=== PATIENT | female | born 1985 | race Caucasian/White ===

== ENCOUNTER → 2016-09-27 | Outpatient (REF) | payer BC | LOC: M LAB REF 17:57 | PROVIDERS: ATTEND Advanced Practice Midwife | DX: Z01.419 Encounter for gynecological examination (general) (routine) without abnormal findings (principal); Z11.51 Encounter for screening for human papillomavirus (HPV) ==

== ENCOUNTER → 2016-10-04 | Outpatient (CLI) | payer BC ==
--- NOTE | 2016-10-04 12:00 | REP ---
PELVIC ULTRASOUND: Real-time sonographic of the pelvis performed utilizing transabdominal and endovaginal technique. Bladder measures 8.2 x 6.9 x 9.6 cm. Uterus measures 8.9 x 4.1 x 5.8 cm. Endometrial thickness is 11 mm. Questionable posterior fibroid measures 1.6 x 1.9 x 2.6 cm. Ovaries appear normal in size and echotexture, right ovary measuring 3.3 x 2.2 x 2.3 cm and left ovary 2.7 x 1.6 x 2.2 cm. Normal sized follicles are seen in each ovary. There is no torsion bilaterally with duplex Doppler evaluation showing blood flow in each ovary. Tiny amount of free fluid is likely physiologic in nature. IMPRESSION: Endometrial thickness 11 mm. Questionable posterior fibroid 1.6 x 1.9 x 2.6 cm. Signed by Kd Duque MD 10/04/2016 05:20 P
== END ==
LOC: M SMT 09:31
PROVIDERS: ATTEND Advanced Practice Midwife
DX: N92.0 Excessive and frequent menstruation with regular cycle (principal); R93.8 Abnormal findings on diagnostic imaging of other specified body structures

== ENCOUNTER → 2016-12-02 | Outpatient (REF) | payer BC ==
[2016-12-03 14:38] LABS: PERCENT SATURATION 25.6 % (13.2-45.0)
== END ==
LOC: M LAB REF 13:44
PROVIDERS: ATTEND Internal Medicine Nephrology
DX: E61.1 Iron deficiency (principal); D30.02 Benign neoplasm of left kidney

== ENCOUNTER → 2018-10-20 | Outpatient (CLI) | payer BC ==
[2018-10-20 18:25] LABS: BASO % 0.1 % (0.0-1.0); EOS # 0.2 10^3/uL (0.0-0.5); EOS % 3.1 % (0.0-3.0); HEMATOCRIT 35.5 % (36.0-47.0); HEMOGLOBIN 12.1 g/dl (12.0-15.5); LYMPH # 1.3 10^3/uL (1.5-5.0); LYMPH % 17.8 % (24.0-44.0); MEAN CORPUSCULAR HEMOGLOBIN 30.5 pg (27.0-33.0); MEAN CORPUSCULAR HGB CONC 34.1 g/dl (32.0-36.5); MEAN CORPUSCULAR VOLUME 89.4 fl (80.0-96.0); MONO # 0.4 10^3/uL (0.0-0.8); MONO % 5.8 % (0.0-5.0); NEUTROPHILS # 5.3 10^3/uL (1.5-8.5); NEUTROPHILS % 72.9 % (36.0-66.0); PLATELET COUNT, AUTOMATED 190 10^3/uL (150-450); RED BLOOD COUNT 3.97 10^6/uL (4.00-5.40); WHITE BLOOD COUNT 7.2 10^3/uL (4.0-10.0)
[2018-10-20 22:52] LABS: CHLAMYDIA DNA AMPLIFICATION NEGATIVE (NEGATIVE); GC DNA AMPLIFICATION NEGATIVE (NEGATIVE)
[2018-10-21 07:20] LABS: HIV 1&2 SCREEN CENTAUR NEGATIVE (NEGATIVE); RUBELLA IgG QUALITATIVE IMMUNE (IMMUNE)
== END ==
LOC: M SMT 15:21
PROVIDERS: ATTEND Advanced Practice Midwife
DX: Z34.81 Encounter for supervision of other normal pregnancy, first trimester (principal)

== ENCOUNTER → 2018-12-09 | Outpatient (CLI) | payer BC ==
--- NOTE | 2018-12-10 08:34 | REP ---
Obstetric sonography: History: Supervision of : For anatomy. Findings: Scanning through the gravid uterus demonstrates a viable single intrauterine gestation in a breech lie. motion is observed and heart rate is recorded at 141 beats per minute. A posterior grade 0 placenta is seen without evidence of previa or abruption. Amniotic fluid is subjectively normal. Closed cervical length measures 4 cm viewed transabdominally. No extrauterine abnormalities observed. nose and lips appear normal but facial profile could not be optimally displayed due to position. Similarly, four-chamber heart and left ventricular outflow tract views were less than optimally seen. The following additional anatomic structures were identified and felt to be unremarkable: cranium, choroid plexus, cavum, cerebellum and posterior fossa, lungs, right ventricular cardiac outflow tract view, diaphragm, left-sided stomach, abdominal wall cord insertion, three-vessel cord, kidneys and bladder, spine, upper and lower extremities. Biometry chart: BPD 4.6 cm = 19 weeks 6 days Head circumference 17.5 cm = 20 weeks 0 days Abdominal circumference 16.3 cm = 21 weeks 2 days Femur length 3.4 cm = 20 weeks 4 days Humeral length 3.3 cm = 21 weeks 1 day HC/AC ratio normal 1.08. Cephalic index normal 0.71. Estimated weight 383 grams, 0 pounds 13 ounces, 79th percentile for 20 weeks zero days. Impression: Viable single intrauterine gestation at 20 weeks 4 days by today's composite sonographic criteria. JENNIFER by today's sonography April 24, 2019. face and heart visualization less than optimal. Breech lie. Electronically Signed by Gera Howard MD 12/10/2018 08:35 A
== END ==
LOC: M RAD 17:46
PROVIDERS: ATTEND Advanced Practice Midwife
DX: Z34.82 Encounter for supervision of other normal pregnancy, second trimester (principal)

== ENCOUNTER → 2019-01-19 | Outpatient (CLI) | payer BC ==
--- NOTE | 2019-01-19 10:15 | REP ---
OB ULTRASOUND: Real-time sonographic evaluation of the gravid uterus performed. There is a single living intrauterine gestation with an estimated gestational age of 25 weeks 6 days, EDC 04/28/2019. Today's measurements indicate appropriate growth. Biometry and Growth: BPD 65 mm = 26 weeks 1 day, 51st percentile HC 241 mm = 26 weeks 1 day, 56th percentile AC 218 mm = 26 weeks 2 days, 58th percentile FL 47 mm = 25 weeks 4 days, 42nd percentile HC/AC ratio 1.10 within normal range. Estimated weight 880 grams, 46th percentile. SEEN/GROSSLY UNREMARKABLE Lateral ventricles Yes Posterior fossa Yes Upper lip Yes Four-chamber heart Yes. Echogenic focus in the left ventricle likely related to cordae tendinea. LVOT Yes RVOT Yes Stomach Yes Cord insertion Yes Three vessel cord Yes Kidneys Yes Bladder Yes Spine Yes Cervical length: Closed and measures 3.7 cm in length. heart rate: 142 beats per minute. position: Breech. Placenta: Posterior and to the right, grade 0 with no previa or abruption. Amniotic fluid: Within normal limits. Electronically Signed by Kd Duque MD 01/20/2019 10:33 A
[2019-01-19 11:26] LABS: HEMATOCRIT 33.7 % (36.0-47.0); HEMOGLOBIN 11.5 g/dl (12.0-15.5); MEAN CORPUSCULAR HEMOGLOBIN 31.8 pg (27.0-33.0); MEAN CORPUSCULAR HGB CONC 34.1 g/dl (32.0-36.5); MEAN CORPUSCULAR VOLUME 93.1 fl (80.0-96.0); PLATELET COUNT, AUTOMATED 163 10^3/uL (150-450); RED BLOOD COUNT 3.62 10^6/uL (4.00-5.40)
== END ==
LOC: M RAD 08:32
PROVIDERS: ATTEND Advanced Practice Midwife
DX: O09.812 Supervision of pregnancy resulting from assisted reproductive technology, second trimester (principal)

== ENCOUNTER → 2019-03-26 | Outpatient (REF) | payer BC | LOC: M WHC 13:41 | PROVIDERS: ATTEND Advanced Practice Midwife | DX: Z34.03 Encounter for supervision of normal first pregnancy, third trimester (principal) ==

== ENCOUNTER 2019-04-30 16:23 | Inpatient (IN) | payer BC ==
[~2019-04-30] VITALS: Ht 165.1 cm; Wt 63.2 kg
[2019-04-30 17:01] VITALS: BP 129/76
[2019-04-30] MEDS ORDERED: MAPA500T2 PO (17:10)
[2019-04-30] MEDS ORDERED: PRENTAB9 PO (17:10)
--- NOTE | 2019-04-30 17:41 | HPE ---
DATE OF ADMISSION: 04/30/2019 Sadie is a 33-year-old 2, para 0-0-1-0. She is at 40-6/7 weeks gestation with an estimated date of confinement (EDC) of 04/24/2019 based on in vitro fertilization (IVF) transfer. She presents to labor and delivery for induction of labor due to post-term . [facility] in the first trimester. course complicated by advanced maternal age and IVF transfer. OBSTETRICAL HISTORY: October 2015, six weeks spontaneous miscarriage. OBSTETRIC LABORATORY DATA: A+, antibody screen negative. Rubella immune, VDRL nonreactive. Urine culture no growth. Hepatitis B surface antigen negative, HIV negative. Hepatitis C antibody nonreactive. Gonorrhea and Chlamydia negative. She declined genetic serum screening laboratories. Gestational diabetic screening normal at 98 and her GBS is negative. PAST MEDICAL HISTORY: Childhood varicella. PAST SURGICAL HISTORY: Hysteroscopy, tonsillectomy, adenoidectomy, and tympanostomy. FAMILY HISTORY: Diabetes, hypertension, schizophrenia, anxiety, and hyperthyroid. SOCIAL HISTORY: The patient is . She is a nonsmoker. She denies alcohol and drug use. No history of sexually transmitted infections and she denies a history of abuse, physical, sexual and emotional. ALLERGIES: SULFA. CURRENT MEDICATIONS: vitamin. OBJECTIVE: Complete set of vital signs have yet to be taken. Her blood pressure is 129/76. She is alert and oriented times three, smiling and talkative. heart rate is 145 with moderate variability, positive accelerations, negative decelerations. There is no pattern of regular contractions. Her abdomen is gravid, cephalic presentation. Estimated weight 7 pounds. Sterile vaginal examination: 1 cm dilated, 50% effaced, -2 station, posterior, moderate texture. ASSESSMENT: Interim at 40-6/7 weeks. heart rate category 1. PLAN: Admit the patient to labor and delivery. Routine laboratories. Saline lock. Out of bed ad pramod. Regular diet at this time. I plan to start misoprostol 50 mcg by mouth every four hours for cervical ripening. The patient has been counseled regarding risks, benefits and alternatives with induction of labor. She has been verbally consented for emergency surgery and blood products if necessary. All of her and her 's questions have been answered and they do desire to proceed with induction. I do anticipate cervical ripening, labor and a vaginal delivery.
[2019-04-30] MEDS: miSOPROStol 50 MCG 1/2 TAB (S0191) PO SCH ×2 (18:22→22:30)
[2019-04-30 18:27] LABS: HEMOGLOBIN 12.4 g/dl (12.0-15.5); MEAN CORPUSCULAR HEMOGLOBIN 31.5 pg (27.0-33.0); MEAN CORPUSCULAR HGB CONC 34.4 g/dl (32.0-36.5); MEAN CORPUSCULAR VOLUME 91.4 fl (80.0-96.0); PLATELET COUNT, AUTOMATED 167 10^3/uL (150-450); RED BLOOD COUNT 3.94 10^6/uL (4.00-5.40); WHITE BLOOD COUNT 11.1 10^3/uL (4.0-10.0)
[2019-04-30 20:01] VITALS: BP 125/72
[2019-04-30 22:28] VITALS: BP 106/62
[2019-05-01] VITALS (24 sets, daily range): BP systolic 102–166; BP diastolic 54–92
[2019-05-01] MEDS ORDERED: PROMETHAZINE INJ 25 MG/ML VIAL (J2550) IV ONE (03:30)
[2019-05-01] MEDS ORDERED: BUTORPHANOL 2 MG/ML INJ (J0595) IV ONE (03:30)
[2019-05-01] MEDS: miSOPROStol 50 MCG 1/2 TAB (S0191) PO SCH ×2 (06:05→06:30)
[2019-05-01] MEDS ORDERED: FENTANYL 2MCG/ML ROPIVACAINE 0.2% IN 0.9% NACL 100ML IVBAG As Ordered ONE (08:47)
[2019-05-01] MEDS ORDERED: FENTANYL/ROPIVACAINE/NACL BAG 100 ML EPIDURAL SCH (10:30)
[2019-05-01] MEDS ORDERED: ONDANSETRON 4MG/2ML VIAL (J2405) IV PRN (10:30)
[2019-05-01] MEDS ORDERED: REFRIGERATOR IV KEYS XX PRN (10:30)
[2019-05-01] MEDS ORDERED: LACTATED RINGER'S 1000 ML IV PRN (10:30)
[2019-05-01] MEDS ORDERED: NALOXONE INJ 0.4 MG/1 ML VIAL (J2310) IV PRN (10:30)
[2019-05-01] MEDS ORDERED: EPIDURAL COMMENT XX SCH (10:30)
[2019-05-01] MEDS ORDERED: ePHEDrine SULFATE 25 MG/5 ML(5MG/ML) SYRINGE IV PRN (10:30)
[2019-05-01] MEDS ORDERED: EPIDURAL/PCA KEYS XX PRN (10:30)
[2019-05-01] MEDS ORDERED: diphenhydrAMINE INJ 50MG/ML VIAL (J1200) IV PRN (10:30)
[2019-05-01] MEDS ORDERED: OXYTOCIN 30 UNITS IN 0.9% NaCl 500ML IV BAG (J2590) As Ordered ONE (10:47)
[2019-05-01] MEDS ORDERED: OXYTOCIN DRIP 30 UNITS in IV 1 EA IV SCH (13:05)
[2019-05-01] MEDS ORDERED: ANUSOL HC CREAM 30GM TOP PRN (13:15)
[2019-05-01] MEDS ORDERED: DIBUCAINE 1% OINTMENT 30GM TOP PRN (13:15)
[2019-05-01] MEDS ORDERED: ACETAMINOPHEN TAB 650MG DOSE (2X325MG) PO PRN (13:15)
[2019-05-01] MEDS ORDERED: ACETAMINOPHEN 500 MG TAB PO PRN (13:15)
[2019-05-01] MEDS ORDERED: IBUPROFEN 600 MG TAB PO PRN (13:15)
[2019-05-01] MEDS ORDERED: RHOGAM 300 MCG (1500 IU) INJ (J2790) IM SCH (13:15)
[2019-05-01] MEDS ORDERED: MEASLES,MUMPS,RUBELLA VACCINE INJ (MMR-II) (90707) SC SCH (13:15)
[2019-05-01] MEDS ORDERED: METHYLERGONOVINE MALEATE 0.2 MG TAB PO PRN (13:15)
[2019-05-01] MEDS ORDERED: DOCUSATE SODIUM 100 MG CAP PO PRN (13:15)
[2019-05-01 13:23] LABS: CORD GAS ABE V -5.4; CORD GAS O2 SAT V 65.4 %; CORD GAS PCO2 V 43.6 mmHg; CORD GAS PH V 7.3 UNITS; CORD GAS PO2 V 28.9 mmHg; CORD GAS SBC V 19.3 MEQ/L; CORD GAS TCO2 V 22.3 MEQ/L
--- NOTE | 2019-05-01 13:33 | DN ---
DATE: 05/01/2019 Sadie is a 33-year-old 2, para 1-0-1-1 now who was admitted to labor and delivery for induction of labor due to post-term . Misoprostol was used and labor did ensue. She utilized an epidural for her labor coping. She reached complete dilation at 0942 hours. She had assisted rupture of membranes for meconium stained fluid at 1050 hours. She pushed to a normal spontaneous vaginal delivery of a live female in right occiput anterior (LAKIA) position with restitution to right occiput transverse (ROT) position at 1222 hours. There was a nuchal cord times one, loose, that was reduced manually at the time of delivery. The 's mouth and nares were bulb suctioned. The shoulders delivered spontaneously and the corpus immediately followed. The was placed on the maternal abdomen crying and active. The cord was clamped times two and cut by the father of the baby under my direction. Venous cord gas was obtained. An arterial cord gas was not able to be obtained. Cord gas results are pending. Cord blood was obtained. Spontaneous expulsion of an intact placenta with three-vessel cord by Arreola mechanism was at 1228 hours. Uterine hemostasis achieved with IV Pitocin rapid infusion and uterine fundal massage. Estimated blood loss 350 mL. Perineum and vagina inspected, noted to have bilateral sulcus lacerations and a left labial laceration. The lacerations were repaired under epidural anesthesia, #3-0 Rapide in the usual fashion. female weighed 7 pounds 3 ounces, 3260 grams, scores 9 and 9. Family have named their daughter Maria D. The mom is going to try to breastfeed. At the close of delivery, lap counts, needle counts and instrument counts were correct and verified.
[2019-05-01] MEDS: IBUPROFEN 800 MG TAB PO PRN (16:31)
[2019-05-02 06:00] VITALS: BP 102/57
[2019-05-02] MEDS: PRENATAL VITAMINS CHEWABLE TABLET PO SCH (07:51)
--- NOTE | 2019-05-02 07:52 | IPNPDOC ---
Progress Note Date of Service: May 02, 2019 Day#: 1 Progress Note SUBJECT: Doing well without complaints. Ambulating, voiding and pain is well-c ontrolled. Reports minimal lochia. OBJECTIVE: VITAL SIGNS: Within normal limits, afebrile. Alert and oriented times three. Abdomen: Fundus firm at U-2. Soft, NTTP. Ext: neg calf tenderness. ASSESSMENT: day #1 status post normal spontaneous vaginal delivery. Recovering in stable condition. PLAN: 1. Continue routine care 2. Discharge plans for tomorrow VS, I&O, 24H, Fishe Vital Signs/I&O Vital Signs Date Time Temp Pulse Resp B/P (MAP) Pulse Ox O2 Delivery O2 Flow Rate FiO2 05/02/19 06:00 99.0 88 16 102/57 (72) 05/01/19 18:00 Room Air I&O- Last 24 Hours up to 6 AM 05/02/19 06:00 Intake Total 546.6 ml Output Total 1800 ml Balance -1253.4 ml Laboratory Data 24H LABS Laboratory Tests 2 05/01/19 13:00: Cord Venous Blood pH 7.300, Cord Venous Blood PCO2 43.6, Cord Venous Blood PO2 28.9, Cord Venous Blood HCO3 21.0, Cord Venous Blood Total CO2 22.3, Cord Venous Base Excess (Actual) -5.4, Cord Venous Base Excess (Standard) 19.3, Cord Venous Blood Oxygen Saturation 65.4 ALLIE SÁNCHEZ MD. May 02, 2019 07:52
[2019-05-02] MEDS: IBUPROFEN 800 MG TAB PO PRN (08:50)
[2019-05-02 18:27] VITALS: BP 121/69
[2019-05-03 06:00] VITALS: BP 109/66
[2019-05-03] MEDS: PRENATAL VITAMINS CHEWABLE TABLET PO SCH (08:32)
== END 2019-05-03 10:30 | disposition home or self-care (01) | DRG 560 ==
LOC: UNDOADMIN 16:23 → M LDI 16:23 → M OBS 05-01 15:28
PROVIDERS: ADMIT Advanced Practice Midwife; ATTEND Advanced Practice Midwife
PROC: 3E0P7GC Introduction of Other Therapeutic Substance into Female Reproductive, Via Natural or Artificial Opening (ICD-10-PCS; 2019-04-30)
PROC: 10E0XZZ Delivery of Products of Conception, External Approach (ICD-10-PCS; principal; 2019-05-01)
PROC: 0HQ9XZZ Repair Perineum Skin, External Approach (ICD-10-PCS; 2019-05-01)
PROC: 10907ZC Drainage of Amniotic Fluid, Therapeutic from Products of Conception, Via Natural or Artificial Opening (ICD-10-PCS; 2019-05-01)
DX: O48.0 Post-term pregnancy (principal); Z3A.40 40 weeks gestation of pregnancy; Z88.2 Allergy status to sulfonamides; O69.81X0 Labor and delivery complicated by cord around neck, without compression, not applicable or unspecified; O70.0 First degree perineal laceration during delivery; Z37.0 Single live birth

== ENCOUNTER → 2020-09-28 | Outpatient (REF) | payer BC ==
[~2020-09-28] MED LIST: MAPA500T2 PO; PRENTAB9 PO
== END ==
LOC: M SFHCWAGY 12:22
PROVIDERS: ATTEND Advanced Practice Midwife
DX: O26.851 Spotting complicating pregnancy, first trimester (principal)

== ENCOUNTER → 2020-10-02 | Outpatient (CLI) | payer OTHER ==
--- NOTE | 2020-10-02 10:28 | REP ---
INDICATION: SPOTTING AFFECTING FIRST TRIMESTER COMPARISON: None. TECHNIQUE: Transabdominal 1st trimester obstetrical ultrasound with color Doppler evaluation. FINDINGS: Single live early intrauterine is appreciated. Gestational sac with yolk sac and pole identified. Cherokee-rump length of 17 mm corresponds to 8 weeks 1 day gestational age with estimated date of delivery 05/13/2021. heart rate equals 172 beats per minute. Subchorionic hemorrhage identified measuring 16 x 18 x 6 mm. Suggestions for a chorionic bump which may represent small hematoma noted. Cervix currently measuring approximately 2.2 cm. IMPRESSION: 1. Single live intrauterine measuring at 8 weeks 1 day gestational age. 2. Cervix currently measuring 2.2 cm in length. 3. Subchorionic hemorrhage and small possible chorionic bump. <Electronically signed by Ortiz Ulloa > 10/02/20 1024
== END ==
LOC: M WHC 09:38
PROVIDERS: ATTEND Advanced Practice Midwife
DX: O26.851 Spotting complicating pregnancy, first trimester (principal); O36.8910 Maternal care for other specified fetal problems, first trimester, not applicable or unspecified; Z3A.08 8 weeks gestation of pregnancy

== ENCOUNTER → 2020-11-09 | Outpatient (REF) | payer OTHER ==
[2020-11-09 12:55] LABS: HEMATOCRIT 38.2 % (36.0-47.0); HEMOGLOBIN 12.9 g/dl (12.0-15.5); MEAN CORPUSCULAR HEMOGLOBIN 30.1 pg (27.0-33.0); MEAN CORPUSCULAR HGB CONC 33.8 g/dl (32.0-36.5); MEAN CORPUSCULAR VOLUME 89.3 fl (80.0-96.0); PLATELET COUNT, AUTOMATED 150 10^3/uL (150-450); RED BLOOD COUNT 4.28 10^6/uL (4.00-5.40); WHITE BLOOD COUNT 6.8 10^3/uL (4.0-10.0)
[2020-11-09 14:16] LABS: HIV 1&2 SCREEN CENTAUR NEGATIVE (NEGATIVE)
[2020-11-09 15:01] LABS: GC DNA AMPLIFICATION NEGATIVE (NEGATIVE)
== END ==
LOC: M PLALAB 10:59 → M SFHCADAM 11:00
PROVIDERS: ATTEND Obstetrics & Gynecology
DX: O09.511 Supervision of elderly primigravida, first trimester (principal)

== ENCOUNTER → 2020-12-28 | Outpatient (CLI) | payer OTHER ==
--- NOTE | 2020-12-28 12:18 | REP ---
INDICATION: ENCOUNTR FOR SUPERVISION OF NORM PREG IN MULTIGRAV IN 2 TRI COMPARISON: 10/02/2020 TECHNIQUE: Transabdominal obstetrical ultrasound with color Doppler evaluation. FINDINGS: Examination demonstrates a single live intrauterine in variable presentation. motion is identified by technologist. Placenta is noted fundal and grade 1 without evidence for placenta previa or abruption. Amniotic fluid volume is normal. Cervix measures 3.8 cm in length and appears closed.. Selected gestational age: 20 weeks 4 days with JENNIFER 05/13/2021. Gestational age by current measurements 20 weeks 6 days with JENNIFER 05/11/2021. FHR equals 156 beats per minute. Estimated weight 368 grams (50thpercentile). Anatomical assessment demonstrates normal structures including cranium, choroid plexus, cavum, cerebellum/posterior fossa, facial features, lungs, four-chamber heart/ventricular outflow tracts, diaphragm, stomach, cord insertion/three-vessel cord, kidneys/bladder, spine, and extremities. IMPRESSION: Single live intrauterine in variable presentation demonstrating appropriate estimated weight and growth. Anatomical assessment is complete and normal. <Electronically signed by Ortiz Ulloa > 12/28/20 [id number]
== END ==
LOC: M WHC 10:32
PROVIDERS: ATTEND Advanced Practice Midwife
DX: Z34.82 Encounter for supervision of other normal pregnancy, second trimester (principal); Z3A.14 14 weeks gestation of pregnancy

== ENCOUNTER → 2021-01-01 | Outpatient (REF) | payer OTHER | LOC: M PLALAB 14:29 | PROVIDERS: ATTEND Advanced Practice Midwife | DX: O09.529 Supervision of elderly multigravida, unspecified trimester (principal) ==

== ENCOUNTER → 2021-03-19 | Outpatient (CLI) | payer OTHER | LOC: M LAB 08:13 | PROVIDERS: ATTEND Advanced Practice Midwife | DX: O99.810 Abnormal glucose complicating pregnancy (principal) ==

== ENCOUNTER → 2021-04-16 | Outpatient (REF) | payer OTHER | LOC: M PLALAB 11:25 | PROVIDERS: ATTEND Advanced Practice Midwife | DX: Z34.02 Encounter for supervision of normal first pregnancy, second trimester (principal) ==

== ENCOUNTER 2021-05-19 15:57 | Inpatient (IN) | payer OTHER ==
[~2021-05-19] VITALS: Ht 165.1 cm; Wt 61.3 kg
[2021-05-19] MEDS ORDERED: OXYTOCIN 30 UNITS IN 0.9% NaCl 500ML IV BAG (J2590) As Ordered ONE (16:48)
[2021-05-19] MEDS ORDERED: DIBUCAINE 1% OINTMENT 30GM TOP PRN (17:00)
[2021-05-19] MEDS ORDERED: METHYLERGONOVINE MALEATE 0.2 MG/ML VIAL (J2210) IM PRN (17:00)
[2021-05-19] MEDS ORDERED: MEASLES,MUMPS,RUBELLA VACCINE INJ (MMR-II) (90707) SC SCH (17:00)
[2021-05-19] MEDS ORDERED: CARBOPROST TROMETHAMINE 250 MCG/ML AMP IM PRN (17:00)
[2021-05-19] MEDS ORDERED: ACETAMINOPHEN 500 MG TAB PO PRN (17:00)
[2021-05-19] MEDS ORDERED: OXYTOCIN DRIP 30 UNITS in IV 1 EA IV PRN (17:00)
[2021-05-19] MEDS ORDERED: TRANEXAMIC ACID INJection 1,000 MG in NS 100 ML IV PRN (17:00)
[2021-05-19] MEDS ORDERED: METHYLERGONOVINE MALEATE 0.2 MG TAB PO PRN (17:00)
[2021-05-19] MEDS ORDERED: RHOGAM 300 MCG (1500 IU) INJ (J2790) IM SCH (17:00)
[2021-05-19] MEDS ORDERED: DOCUSATE SODIUM 100MG CAPSULE PO PRN (17:00)
[2021-05-19 20:00] VITALS: BP 109/77
[2021-05-19] MEDS: IBUPROFEN 600MG TAB PO PRN (20:00)
[2021-05-20 06:00] VITALS: BP 136/76
[2021-05-20] MEDS: PRENATAL VITAMINS CHEWABLE TABLET PO SCH (09:14)
[2021-05-20] MEDS: IBUPROFEN 600MG TAB PO PRN (09:48)
[2021-05-20 18:13] VITALS: BP 123/78
[2021-05-21 06:15] VITALS: BP 125/72
[2021-05-21] MEDS: IBUPROFEN 600MG TAB PO PRN (06:24)
[2021-05-21 07:45] VITALS: BP 125/72
[2021-05-21] MEDS: PRENATAL VITAMINS CHEWABLE TABLET PO SCH (10:52)
== END 2021-05-21 18:40 | disposition home or self-care (01) | DRG 807 ==
LOC: M LDO 15:57 → M LDI 16:28 → M OBS 21:35
PROVIDERS: ADMIT Obstetrics & Gynecology; ATTEND Obstetrics & Gynecology
PROC: 10E0XZZ Delivery of Products of Conception, External Approach (ICD-10-PCS; principal; 2021-05-19)
DX: O62.3 Precipitate labor (principal); Z37.0 Single live birth; Z3A.40 40 weeks gestation of pregnancy; O99.824 Streptococcus B carrier state complicating childbirth

== ENCOUNTER → 2021-07-13 | Outpatient (CLI) | payer OTHER ==
[2021-07-13 13:34] LABS: BASO % 0.3 % (0.0-1.0); EOS % 15.5 % (0.0-3.0); HEMATOCRIT 39.5 % (36.0-47.0); HEMOGLOBIN 13.1 g/dl (12.0-15.5); LYMPH # 1.7 10^3/uL (1.5-5.0); LYMPH % 25.5 % (24.0-44.0); MEAN CORPUSCULAR HEMOGLOBIN 31.3 pg (27.0-33.0); MEAN CORPUSCULAR HGB CONC 33.2 g/dl (32.0-36.5); MEAN CORPUSCULAR VOLUME 94.3 fl (80.0-96.0); MONO # 0.4 10^3/uL (0.0-0.8); MONO % 5.5 % (2.0-8.0); NEUTROPHILS # 3.5 10^3/uL (1.5-8.5); NEUTROPHILS % 52.9 % (36.0-66.0); PLATELET COUNT, AUTOMATED 193 10^3/uL (150-450); RED BLOOD COUNT 4.19 10^6/uL (4.00-5.40); WHITE BLOOD COUNT 6.6 10^3/uL (4.0-10.0)
[2021-07-13 17:15] LABS: ALBUMIN 3.9 GM/DL (3.2-5.2); ALT/SGPT 26 U/L (12-78); BILIRUBIN,TOTAL 0.5 MG/DL (0.2-1.0); BLOOD UREA NITROGEN 6 MG/DL (7-18); CALCIUM LEVEL 8.9 MG/DL (8.5-10.1); CARBON DIOXIDE LEVEL 27 MEQ/L (21-32); CHLORIDE LEVEL 102 MEQ/L (98-107); CHOLESTEROL LEVEL 169 MG/DL (<200); CREATININE FOR GFR 0.69 MG/DL (0.55-1.30); FERRITIN 44 NG/ML (8-252); FOLATE 11.8 NG/ML (>5.4); GLOMERULAR FILTRATION RATE > 60.0 (>60); GLUCOSE, FASTING 79 MG/DL (70-100); HDL CHOLESTEROL 64 MG/DL (>40); IRON (FE) 112 UG/DL (50-170); LDL CHOLESTEROL 93 MG/DL (<100); NON-HDL-C 105 MG/DL; PERCENT SATURATION 40.1 % (13.2-45.0); POTASSIUM SERUM 4.4 MEQ/L (3.5-5.1); SODIUM LEVEL 137 MEQ/L (136-145); THYROID STIMULATING HORMONE 0.796 uIU/ML (0.358-3.740); TOTAL IRON BINDING CAPACITY 279 UG/DL (250-450); TOTAL PROTEIN 6.7 GM/DL (6.4-8.2); TRIGLYCERIDES LEVEL 61 MG/DL (<150); VITAMIN B12 LEVEL 361 PG/ML (247-911)
== END ==
LOC: M ADAMS 10:14
PROVIDERS: ATTEND Physician Assistant Medical
DX: Z13.220 Encounter for screening for lipoid disorders (principal)

== ENCOUNTER → 2021-11-20 | Outpatient (REF) | payer OTHER | LOC: M SFHCWAGY 17:13 | PROVIDERS: ATTEND Advanced Practice Midwife | DX: Z12.4 Encounter for screening for malignant neoplasm of cervix (principal) ==

== ENCOUNTER → 2021-11-29 | Outpatient (CLI) | payer OTHER | LOC: M WHC 09:20 | PROVIDERS: ATTEND Nurse Practitioner Family | DX: N28.1 Cyst of kidney, acquired (principal) ==

== ENCOUNTER → 2023-03-14 | Outpatient (CLI) | payer BC ==
[2023-03-14 14:08] LABS: HEMATOCRIT 38.7 % (36.0-47.0); MEAN CORPUSCULAR HEMOGLOBIN 30.5 pg (27.0-33.0); MEAN CORPUSCULAR HGB CONC 33.6 g/dl (32.0-36.5); MEAN CORPUSCULAR VOLUME 90.8 fl (80.0-96.0); PLATELET COUNT, AUTOMATED 202 10^3/uL (150-450); RED BLOOD COUNT 4.26 10^6/uL (4.00-5.40); WHITE BLOOD COUNT 7.2 10^3/uL (4.0-10.0)
[2023-03-14 15:01] LABS: HIV 1&2 SCREEN NEGATIVE (NEGATIVE)
[2023-03-14 15:04] LABS: CHLAMYDIA DNA AMPLIFICATION NEGATIVE (NEGATIVE); GC DNA AMPLIFICATION NEGATIVE (NEGATIVE)
[2023-03-14 15:09] LABS: HEPATITIS C VIRUS ABY INDEX < 0.02 INDEX (<0.8)
== END ==
LOC: M PLALAB 10:29
PROVIDERS: ATTEND Advanced Practice Midwife
DX: Z34.91 Encounter for supervision of normal pregnancy, unspecified, first trimester (principal)

== ENCOUNTER → 2023-05-26 | Outpatient (CLI) | payer BC | LOC: M WHC 07:37 | PROVIDERS: ATTEND Advanced Practice Midwife | DX: Z34.82 Encounter for supervision of other normal pregnancy, second trimester (principal) ==

== ENCOUNTER → 2023-07-18 | Outpatient (CLI) | payer BC ==
[2023-07-18 14:40] LABS: HEMATOCRIT 32.9 % (36.0-47.0); HEMOGLOBIN 11.2 g/dl (12.0-15.5); MEAN CORPUSCULAR HEMOGLOBIN 31.9 pg (27.0-33.0); MEAN CORPUSCULAR VOLUME 93.7 fl (80.0-96.0); PLATELET COUNT, AUTOMATED 146 10^3/uL (150-450); RED BLOOD COUNT 3.51 10^6/uL (4.00-5.40); WHITE BLOOD COUNT 6.7 10^3/uL (4.0-10.0)
== END ==
LOC: M PLALAB 08:29
PROVIDERS: ATTEND Advanced Practice Midwife
DX: Z34.92 Encounter for supervision of normal pregnancy, unspecified, second trimester (principal)

== ENCOUNTER → 2023-08-11 | Outpatient (CLI) | payer BC ==
[2023-08-11 11:45] LABS: BASO % 0.3 % (0.0-1.0); EOS # 0.1 10^3/uL (0.0-0.5); HEMATOCRIT 32.3 % (36.0-47.0); HEMOGLOBIN 11.2 g/dl (12.0-15.5); LYMPH # 1.3 10^3/uL (1.5-5.0); LYMPH % 17.3 % (24.0-44.0); MEAN CORPUSCULAR HEMOGLOBIN 32.3 pg (27.0-33.0); MEAN CORPUSCULAR HGB CONC 34.7 g/dl (32.0-36.5); MEAN CORPUSCULAR VOLUME 93.1 fl (80.0-96.0); MONO # 0.4 10^3/uL (0.0-0.8); MONO % 5.5 % (2.0-8.0); NEUTROPHILS # 5.8 10^3/uL (1.5-8.5); NEUTROPHILS % 75.5 % (36.0-66.0); PLATELET COUNT, AUTOMATED 146 10^3/uL (150-450); RED BLOOD COUNT 3.47 10^6/uL (4.00-5.40); WHITE BLOOD COUNT 7.6 10^3/uL (4.0-10.0)
[2023-08-11 12:19] LABS: ALKALINE PHOSPHATASE 77 U/L (46-116); ALT/SGPT 12 U/L (7.0-40); AST/SGOT 11 U/L (<34); BILIRUBIN,TOTAL 0.4 MG/DL (0.3-1.2); BLOOD UREA NITROGEN 6 MG/DL (9-23); CALCIUM LEVEL 8.4 MG/DL (8.5-10.1); CARBON DIOXIDE LEVEL 25 MMOL/L (20-31); CHLORIDE LEVEL 106 MMOL/L (98-107); CHOLESTEROL LEVEL 235 MG/DL (<200); CHOLESTEROL RISK RATIO 3.74 (<5); CREATININE FOR GFR 0.42 MG/DL (0.55-1.30); GLOMERULAR FILTRATION RATE > 60.0 (>60); GLUCOSE, FASTING 66 MG/DL (60-100); HDL CHOLESTEROL 62.7 MG/DL (>40); IRON (FE) 79 UG/DL (50-170); LDL CHOLESTEROL 142.7 MG/DL (<100); NON-HDL-C 172.3 MG/DL; PERCENT SATURATION 19.5 % (13.2-45.0); POTASSIUM SERUM 3.9 MMOL/L (3.5-5.1); SODIUM LEVEL 136 MMOL/L (136-145); TOTAL IRON BINDING CAPACITY 405 UG/DL (250-425); TOTAL PROTEIN 5.4 G/DL (5.7-8.2); TRIGLYCERIDES LEVEL 148 MG/DL (<150)
[2023-08-11 12:23] LABS: FERRITIN 17.7 NG/ML (7.3-270.7); THYROID STIMULATING HORMONE 2.215 uIU/ML (0.55-4.78); VITAMIN B12 LEVEL 282 PG/ML (211-911)
[2023-08-11 12:24] LABS: FOLATE 18.47 NG/ML (>5.4)
== END ==
LOC: M PLALAB 08:52
PROVIDERS: ATTEND Physician Assistant Medical
DX: E61.1 Iron deficiency (principal)

== ENCOUNTER → 2023-09-01 | Outpatient (REF) | payer BC | LOC: M PLALAB 07:10 | PROVIDERS: ATTEND Advanced Practice Midwife | DX: Z34.83 Encounter for supervision of other normal pregnancy, third trimester (principal) ==

== ENCOUNTER 2023-10-01 14:44 | Inpatient (IN) | payer BC ==
[2023-10-01] VITALS (36 sets, daily range): BP systolic 92–166; BP diastolic 50–106
[~2023-10-01] VITALS: Ht 165.1 cm; Wt 59.9 kg
[2023-10-01] MEDS ORDERED: PENICILLIN G POTASSIUM 5 MU IV 5 MU in D5W MINI-BAG PLUS 100 ML IV STA (15:52)
[2023-10-01] MEDS ORDERED: LR 1,000 ML IV SCH (15:55)
[2023-10-01] MEDS ORDERED: CARBOPROST TROMETHAMINE 250 MCG/ML AMP IM PRN (15:55)
[2023-10-01] MEDS ORDERED: TRANEXAMIC ACID INJection 1,000 MG in NS 100 ML IV PRN (15:55)
[2023-10-01] MEDS ORDERED: OXYTOCIN DRIP 30 UNITS in IV 1 EA IV PRN (15:55)
[2023-10-01] MEDS ORDERED: LIDOCAINE 1% MDV 20ML VIAL INFIL PRN (15:55)
[2023-10-01] MEDS ORDERED: METHYLERGONOVINE MALEATE 0.2MG/ML 1ML VIAL IM PRN (15:55)
[2023-10-01] MEDS ORDERED: OXYTOCIN INJ 10UNITS/ML 1ML VIAL IM PRN (15:55)
[2023-10-01] MEDS: PENICILLIN G POTASSIUM 5 MU IV 5 MU in D5W MINI-BAG PLUS 100 ML IV STA (16:38)
[2023-10-01] MEDS: LACTATED RINGER'S 1000 ML IV STA (16:38)
[2023-10-01 16:55] LABS: MEAN CORPUSCULAR HEMOGLOBIN 31.7 pg (27.0-33.0); MEAN CORPUSCULAR VOLUME 90.7 fl (80.0-96.0); PLATELET COUNT, AUTOMATED 186 10^3/uL (150-450); RED BLOOD COUNT 4.41 10^6/uL (4.00-5.40); WHITE BLOOD COUNT 11.8 10^3/uL (4.0-10.0)
[2023-10-01] MEDS ORDERED: **PENDING PCN ENTRY XX SCH (17:00)
[2023-10-01] MEDS ORDERED: EPIDURAL/PCA KEYS XX PRN (17:40)
[2023-10-01] MEDS ORDERED: diphenhydrAMINE 50MG/ML VIAL IV PRN (17:40)
[2023-10-01] MEDS ORDERED: NALOXONE INJ 0.4MG/1ML VIAL IV PRN (17:40)
[2023-10-01] MEDS ORDERED: LR 500 ML IV PRN (17:40)
[2023-10-01 17:51] LABS: HEPATITIS C VIRUS ABY INDEX < 0.02 INDEX (<0.8)
[2023-10-01] MEDS: FENTANYL/ROPIVACAINE/NACL BAG 100 ML EPIDURAL SCH (18:16)
[2023-10-01] MEDS: ePHEDrine SULFATE 25 MG/5 ML(5MG/ML) SYRINGE IVP PRN (18:47)
[2023-10-01] MEDS: ONDANSETRON 4MG 2ML VIAL IV PRN (19:30)
[2023-10-01] MEDS: OXYTOCIN DRIP 30 UNITS in IV 1 EA IV SCH (19:41)
[2023-10-01] MEDS ORDERED: PEN G POT 3,000,000 UNIT/50 ML 3,000,000 UNIT in IV 1 EA IV SCH ×2 (19:55→21:00)
[2023-10-01] MEDS ORDERED: ACETAMINOPHEN 500 MG TAB PO PRN (21:05)
[2023-10-01] MEDS ORDERED: RHO(D) IMMUNE GLOBULIN/MALTOSE 500MCG(2500IU)/2.2ML VIAL (WINRHO) IM SCH (21:05)
[2023-10-01] MEDS ORDERED: DOCUSATE SODIUM 100MG CAPSULE PO PRN (21:05)
[2023-10-01] MEDS ORDERED: IBUPROFEN 600MG TAB PO PRN (21:05)
[2023-10-01] MEDS ORDERED: METHYLERGONOVINE MALEATE 0.2 MG TAB PO PRN (21:05)
[2023-10-01] MEDS ORDERED: DIBUCAINE 1% OINTMENT 30GM TOP PRN (21:05)
[2023-10-02 00:04] VITALS: BP 105/59; O2SAT 98
[2023-10-02] MEDS: IBUPROFEN 800 MG TAB PO PRN (02:13)
[2023-10-02] MEDS: ACETAMINOPHEN TAB 650MG DOSE (2X325MG) PO PRN (06:10)
[2023-10-02 06:13] VITALS: BP 109/71; O2SAT 99
[2023-10-02] MEDS: PRENATAL VITAMINS CHEWABLE TABLET PO SCH (10:20)
[2023-10-02 18:00] VITALS: BP 103/68; O2SAT 98
[2023-10-03 06:28] VITALS: BP 103/58
[2023-10-03] MEDS: MEASLES,MUMPS,RUBELLA VACCINE INJ (MMR-II) SC.IMMUN ONE (08:33)
== END 2023-10-03 13:25 | disposition home or self-care (01) | DRG 560 ==
LOC: M LDO 14:44 → M LDI 15:56 → M OBS 23:51
PROVIDERS: ADMIT Advanced Practice Midwife; ATTEND Advanced Practice Midwife
PROC: 10E0XZZ Delivery of Products of Conception, External Approach (ICD-10-PCS; principal; 2023-10-01)
DX: O48.0 Post-term pregnancy (principal); O99.824 Streptococcus B carrier state complicating childbirth; Z3A.40 40 weeks gestation of pregnancy; Z37.0 Single live birth

== ENCOUNTER → 2024-01-19 | Outpatient (CLI) | payer BC | LOC: M WHC 09:37 | PROVIDERS: ATTEND Nurse Practitioner Family | DX: N28.1 Cyst of kidney, acquired (principal) ==

== ENCOUNTER → 2024-04-17 | Outpatient (CLI) | payer BC ==
[2024-04-17 09:42] LABS: BASO % 0.4 % (0.0-1.0); EOS # 0.1 10^3/uL (0.0-0.5); EOS % 2.7 % (0.0-3.0); HEMATOCRIT 41.6 % (36.0-47.0); HEMOGLOBIN 13.7 g/dl (12.0-15.5); LYMPH # 1.5 10^3/uL (1.5-5.0); LYMPH % 29.2 % (24.0-44.0); MEAN CORPUSCULAR HEMOGLOBIN 30.1 pg (27.0-33.0); MEAN CORPUSCULAR HGB CONC 32.9 g/dl (32.0-36.5); MEAN CORPUSCULAR VOLUME 91.4 fl (80.0-96.0); MONO # 0.4 10^3/uL (0.0-0.8); MONO % 7.1 % (2.0-8.0); NEUTROPHILS # 3.1 10^3/uL (1.5-8.5); NEUTROPHILS % 60.4 % (36.0-66.0); PLATELET COUNT, AUTOMATED 197 10^3/uL (150-450); RED BLOOD COUNT 4.55 10^6/uL (4.00-5.40); WHITE BLOOD COUNT 5.1 10^3/uL (4.0-10.0)
[2024-04-17 10:04] LABS: ALBUMIN 4.1 G/DL (3.2-5.2); ALKALINE PHOSPHATASE 78 U/L (35-104); ALT/SGPT 18 U/L (7.0-40); AST/SGOT 20 U/L (<34); BILIRUBIN,TOTAL 0.4 MG/DL (0.3-1.2); BLOOD UREA NITROGEN 11 MG/DL (9-23); CALCIUM LEVEL 9.7 MG/DL (8.5-10.1); CARBON DIOXIDE LEVEL 28 MMOL/L (20-31); CHLORIDE LEVEL 104 MMOL/L (98-107); CHOLESTEROL LEVEL 165 MG/DL (<200); CHOLESTEROL RISK RATIO 2.01 (<5); CREATININE FOR GFR 0.59 MG/DL (0.55-1.30); GLOMERULAR FILTRATION RATE > 60.0 (>58); GLUCOSE, FASTING 81 MG/DL (60-100); HDL CHOLESTEROL 81.9 MG/DL (>40); IRON (FE) 50 UG/DL (50-170); LDL CHOLESTEROL 73.7 MG/DL (<100); NON-HDL-C 83.1 MG/DL; PERCENT SATURATION 15.7 % (13.2-45.0); POTASSIUM SERUM 4.3 MMOL/L (3.5-5.1); SODIUM LEVEL 142 MMOL/L (136-145); TOTAL IRON BINDING CAPACITY 318 UG/DL (250-425); TOTAL PROTEIN 7.1 G/DL (5.7-8.2); TRIGLYCERIDES LEVEL 47 MG/DL (<150)
[2024-04-17 10:05] LABS: FERRITIN 44.5 NG/ML (7.3-270.7); THYROID STIMULATING HORMONE 1.218 uIU/ML (0.55-4.78); TOTAL 25(OH) VITAMIN D 36.4 NG/ML (20.0-100.0)
[2024-04-17 10:06] LABS: FOLATE > 24.0 NG/ML (>5.4); VITAMIN B12 LEVEL 706 PG/ML (211-911)
== END ==
LOC: M LAB 08:37
PROVIDERS: ATTEND Physician Assistant Medical
DX: R53.82 Chronic fatigue, unspecified (principal)

== ENCOUNTER → 2024-04-17 | Outpatient (CLI) | payer BC | LOC: M RAD 08:36 | PROVIDERS: ATTEND Nurse Practitioner Family | DX: N20.0 Calculus of kidney (principal) ==